=== PATIENT | male | born 1950 | race Caucasian/White ===

== ENCOUNTER 2020-04-22 08:47 | Observation (INO) ==
[~2020-04-22 08:47] MED LIST: Buffered Lidocaine 1% SYRIN 1 ml INTRADERM ONE; Famotidine IV 10 MG/ML 2 ml VIAL (20 mg) IV ONE; Lactated Ringers 1000 ml BAG 1,000 ML IV SCH
[2020-04-22] MEDS ORDERED: ceFAZolin 2 GM PREMIX 2 GM/50 ML BAG ONE (09:04)
[2020-04-22] MEDS ORDERED: Buffered Lidocaine 1% SYRIN 1 ml INTRADERM ONE (09:05)
[2020-04-22] MEDS ORDERED: Famotidine IV 10 MG/ML 2 ml VIAL (20 mg) ONE (09:05)
[2020-04-22] MEDS ORDERED: Propofol 10 mg/ml 100 ML BTL 100 ML ONE (10:26)
[2020-04-22] MEDS ORDERED: Midazolam 2 mg/2 ml VIAL 1 mg/ml 2 ml VIAL (2 mg) ONE (10:26)
[2020-04-22] MEDS ORDERED: fentaNYL 100 mcg/2 ml 50 MCG/ML VIAL ONE (10:26)
[2020-04-22] MEDS ORDERED: Bupivacaine 0.5% SDV PF 30ML VIAL ONE (10:36)
[2020-04-22] MEDS ORDERED: EPHEDrine (Pressors) 50 MG/ML VIAL ONE (11:16)
[2020-04-22] MEDS ORDERED: Ondansetron 4 mg VIAL 2 MG/ML 2 ml VIAL ONE (11:16)
[2020-04-22] MEDS ORDERED: Dexamethasone IV 4 MG/ML VIAL 1 ml VIAL ONE (11:16)
[2020-04-22] MEDS ORDERED: Lactulose 30 ml UDC PO PRN (11:44)
[2020-04-22] MEDS ORDERED: diPHENhydraMINE IV 50 MG/ML 1 ml VIAL (BENADRYL) IV PRN (11:44)
[2020-04-22] MEDS ORDERED: oxyCODONE/Acetamin 5/325 mg TAB PO PRN ×2 (11:44)
[2020-04-22] MEDS ORDERED: diPHENhydraMINE 25 mg TAB PO PRN (11:44)
[2020-04-22] MEDS ORDERED: Ondansetron ODT 4 mg TAB 4 MG TAB PO PRN (11:44)
[2020-04-22] MEDS ORDERED: Ondansetron 4 mg VIAL 2 MG/ML 2 ml VIAL IV PRN ×2 (11:44→12:58)
[2020-04-22] MEDS ORDERED: Morphine 2 MG/ML SYRINGE IV PRN (11:44)
[2020-04-22] MEDS ORDERED: Magnesium Hydroxide LIQ 30 ML UDC PO PRN (11:44)
[2020-04-22] MEDS ORDERED: Lidocaine 2% PF 5 ML VIAL ONE (11:50)
[2020-04-22] MEDS ORDERED: ceFAZolin 1 GM ADVAN 1 GM in NS 0.9% 50 ML 50 ML IVPB SCH (12:00)
[2020-04-22] MEDS ORDERED: Naloxone 0.4 mg VIAL 0.4 mg/ml 1 ml VIAL IV PRN (12:58)
[2020-04-22] MEDS ORDERED: fentaNYL 100 mcg/2 ml 50 MCG/ML VIAL IV PRN (12:58)
[2020-04-22] MEDS: Lactated Ringers 1000 ml BAG 1,000 ML IV SCH (16:54)
[2020-04-22] MEDS ORDERED: CMC: Pravastatin 20 mg TAB (NF) PO SCH (19:00)
[2020-04-22] MEDS ORDERED: Cholecalciferol (VIT D3) 1,000 unit TAB PO SCH (19:00)
[2020-04-22] MEDS: ceFAZolin 1 GM ADVAN 1 GM in NS 0.9% 50 ML 50 ML IVPB SCH (20:22)
[2020-04-22] MEDS: Magnesium Hydroxide LIQ 30 ML UDC PO SCH (20:23)
[2020-04-23] MEDS: Lactated Ringers 1000 ml BAG 1,000 ML IV SCH (03:39)
[2020-04-23] MEDS: ceFAZolin 1 GM ADVAN 1 GM in NS 0.9% 50 ML 50 ML IVPB SCH ×2 (03:39→12:26)
[2020-04-23 06:08] LABS: Hematocrit 37 % (42-52); Hemoglobin 12.3 g/dL (14.0-18.0); Mean Platelet Volume 6.7 fL (7.4-10.4); Platelet Count 201 10^3/uL (150-450)
[2020-04-23 06:28] LABS: Calcium 9.8 mg/dL (8.6-10.3); EGFR African American 89.6 (>60); EGFR Non-African American 74.1 (>60); Magnesium 2.1 mg/dL (1.9-2.7); Potassium 4.8 mmol/L (3.5-5.0)
[2020-04-23] MEDS: Magnesium Hydroxide LIQ 30 ML UDC PO SCH (08:24)
[2020-04-23] MEDS ORDERED: Vitamin THERAPEUTIC TAB PO SCH (09:00)
[2020-04-23 11:15] VITALS: BP 95/53
[2020-04-23] MEDS ORDERED: CMC: Pravastatin 20 mg TAB (NF) PO SCH (19:30)
== END 2020-04-23 13:50 | disposition home or self-care (01) ==
LOC: OR 08:47 → INTOOBSV 17:02 → SSU 17:02
PROVIDERS: ADMIT Orthopaedic Surgery Adult Reconstructive Orthopaedic Surgery; ATTEND Orthopaedic Surgery Adult Reconstructive Orthopaedic Surgery